=== PATIENT | female | born 1950 | race Caucasian/White ===

== ENCOUNTER → 2016-09-11 | Outpatient (CLI) | payer MEDICARE, BC ==
[~2016-09-11] MED LIST: KEFLEX250 MG PO; LIVALO2 MG PO; NORCO 5-325 MG1 TAB PO; OCUVITE SOFTGE1 EACH PO; PERCOCET 5-3251 EACH PO; PREMARIN0.3 MG PO; VITAMIN D2000 UNI1 PO
== END | disposition disaster alternative care site (69) ==
LOC: GRAD 10:41
DX: M25.511 Pain in right shoulder (principal); M75.101 Unspecified rotator cuff tear or rupture of right shoulder, not specified as traumatic; S43.431A Superior glenoid labrum lesion of right shoulder, initial encounter; M75.91 Shoulder lesion, unspecified, right shoulder